=== PATIENT | male | born 1950 | race Caucasian/White ===

== ENCOUNTER 2017-11-16 23:08 | Emergency (ER) | payer MEDICARE ==
[~2017-11-16] VITALS: Ht 182.9 cm; Wt 92.2 kg
[2017-11-16 23:13] VITALS: BP 143/91; PULSE 106; TEMP 99.1; O2SAT 97
[2017-11-16 23:45] VITALS: O2SAT 98
[2017-11-17] MEDS ORDERED: RANI1TAB5 PO (00:34)
[2017-11-17] MEDS ORDERED: ATOR80TA45 PO (00:34)
[2017-11-17] MEDS ORDERED: EZET1TAB8 PO (00:34)
[2017-11-17] MEDS ORDERED: METO1TAB42 PO (00:34)
[2017-11-17] MEDS ORDERED: LISI2.5T3 PO (00:34)
[2017-11-17] MEDS ORDERED: CLOP75TA PO (00:34)
[2017-11-17] MEDS ORDERED: ASPI-147 PO (00:34)
[2017-11-17 01:00] VITALS: BP 159/93; PULSE 78; RESP 16; O2SAT 99
--- NOTE | 2017-11-17 01:25 | PD ---
HPI Chief Complaint: GI Complaint Time Seen by Provider: 01:22 Travel History International Travel<30 days: No Contact w/Intl Traveler<30days: No Traveled to known affect area: No History of Present Illness HPI The patient is a 67-year-old male that complains of diffuse abdominal pain now mostly in the midline epigastrium for 3 days. He denies any nausea or vomiting. He states he has been passing increased gas. He denies any fever. The patient has had no abdominal surgeries and still has his gallbladder and appendix. There is been no diarrhea. There is no fever. The pain is described as a 7/10 and is dull and continuous and radiates to the bilateral back. The patient has a history of GERD. He takes Zantac for this. PFSH Past Medical History Cardiac Catheterization: Yes High Cholesterol: Yes Myocardial Infarction: Yes (2012) ?: Not Past Surgical History Coronary Stent: Yes (2012) Social History Alcohol Use: No Tobacco Use: No Substance Use: No Allergies-Medications (Allergen,Severity, Reaction): Coded Allergies: oxycodone (Verified Allergy, Intermediate, 11/17/17) Reported Meds & Prescriptions Reported Meds & Active Scripts Active Zofran Odt (Ondansetron Odt) 4 Mg Tab 4 Mg SL Q6HR PRN Tramadol (Tramadol HCl) 50 Mg Tab 50 Mg PO Q4H PRN Omeprazole 40 Mg Cap 40 Mg PO DAILY Reported Ecotrin Low Strength (Aspirin) 81 Mg Tabdr 81 Mg PO DAILY Lisinopril 2.5 Mg Tab 2.5 Mg PO DAILY Atorvastatin (Atorvastatin Calcium) 80 Mg Tab 80 Mg PO HS Clopidogrel (Clopidogrel Bisulfate) 75 Mg Tab 75 Mg PO DAILY Metoprolol Succinate ER 24 HR (Metoprolol Succinate) 25 Mg Tab 25 Mg PO DAILY Ranitidine 75 (Ranitidine HCl) 75 Mg Tab 75 Mg PO DAILY Take 30 to 60 minutes before eating food or drinking beverages that cause heartburn. Ezetimibe 10 Mg Tab 10 Mg PO DAILY Review of Systems Except as stated in HPI: all other systems reviewed are Neg Physical Exam Narrative GENERAL: The patient is alert, oriented 3 in slight apparent distress with his abdominal discomfort. His vital signs show pulse rate of 106 with blood pressure 143/91 but are otherwise normal. SKIN: Focused skin assessment warm/dry. HEAD: Atraumatic. Normocephalic. EYES: Pupils equal and round. No scleral icterus. No injection or drainage. ENT: No nasal bleeding or discharge. Mucous membranes pink and moist. NECK: Trachea midline. No JVD. CARDIOVASCULAR: Regular rate and rhythm. No murmur appreciated. RESPIRATORY: No accessory muscle use. Clear to auscultation. Breath sounds equal bilaterally. GASTROINTESTINAL: Abdomen soft, with minimal tenderness of the midline epigastrium to direct palpation, nondistended. Hepatic and splenic margins not palpable. No guarding or rebound is present. MUSCULOSKELETAL: No obvious deformities. No clubbing. No cyanosis. No edema. NEUROLOGICAL: Awake and alert. No obvious cranial nerve deficits. Motor grossly within normal limits. Normal speech. PSYCHIATRIC: Appropriate mood and affect; insight and judgment normal. Data Data Last Documented VS Vital Signs Date Time Temp Pulse Resp B/P (MAP) Pulse Ox O2 Delivery O2 Flow Rate FiO2 11/17/17 02:05 78 16 171/91 (117) 99 11/17/17 01:00 Room Air 11/16/17 23:13 99.1 Orders Orders Complete Blood Count With Diff (11/17/17 00:45) Comprehensive Metabolic Panel (11/17/17 00:45) Urinalysis - C+S If Indicated (11/17/17 00:45) Iv Access Insert/Monitor (11/17/17 00:45) Lipase (11/17/17 00:45) Ct Abd/Pel W Iv Contrast(Rout) (11/17/17 01:26) Ecg Monitoring (11/17/17 01:26) Oximetry (11/17/17 01:26) Pantoprazole Inj (Protonix Inj) (11/17/17 01:30) Sodium Chlor 0.9% 1000 Ml Inj (Ns 1000 M (11/17/17 01:26) Sodium Chloride 0.9% Flush (Ns Flush) (11/17/17 01:30) Famotidine Inj (Pepcid Inj) (11/17/17 01:30) Iohexol 350 Inj (Omnipaque 350 Inj) (11/17/17 02:53) Morphine Inj (Morphine Inj) (11/17/17 04:15) Ondansetron Inj (Zofran Inj) (11/17/17 04:15) Ed Discharge Order (11/17/17 04:17) Labs Laboratory Tests Test 11/17/17 00:50 11/17/17 01:10 11/17/17 01:50 Urine Collection Type CLEAN CATCH Urine Color YELLOW Urine Turbidity CLEAR Urine pH 5.5 Urine Specific [place] 1.025 Urine Protein TRACE mg/dL Urine Glucose (UA) NEG mg/dL Urine Ketones NEG mg/dL Urine Occult Blood TRACE Urine Nitrite NEG Urine Bilirubin NEG Urine Urobilinogen 0.2 MG/DL Urine Leukocyte Esterase NEG Urine RBC 0-3 /hpf Urine Squamous Epithelial Cells 0-5 /hpf Urine Mucus OCC /lpf Microscopic Urinalysis Comment CULT NOT INDICATED White Blood Count 9.2 TH/MM3 Red Blood Count 5.25 MIL/MM3 Hemoglobin 15.8 GM/DL Hematocrit 45.7 % Mean Corpuscular Volume 86.9 FL Mean Corpuscular Hemoglobin 30.0 PG Mean Corpuscular Hemoglobin Concent 34.5 % Red Cell Distribution Width 13.3 % Platelet Count 199 TH/MM3 Mean Platelet Volume 7.3 FL Neutrophils (%) (Auto) 72.2 % Lymphocytes (%) (Auto) 15.4 % Monocytes (%) (Auto) 9.8 % Eosinophils (%) (Auto) 2.1 % Basophils (%) (Auto) 0.5 % Neutrophils # (Auto) 6.7 TH/MM3 Lymphocytes # (Auto) 1.4 TH/MM3 Monocytes # (Auto) 0.9 TH/MM3 Eosinophils # (Auto) 0.2 TH/MM3 Basophils # (Auto) 0.0 TH/MM3 CBC Comment DIFF FINAL Differential Comment Blood Urea Nitrogen 9 MG/DL Creatinine 1.10 MG/DL Random Glucose 142 MG/DL Total Protein 7.4 GM/DL Albumin 3.0 GM/DL Calcium Level 8.6 MG/DL Alkaline Phosphatase 101 U/L Aspartate Amino Transf (AST/SGOT) 18 U/L Alanine Aminotransferase (ALT/SGPT) 25 U/L Total Bilirubin 1.4 MG/DL Sodium Level 138 MEQ/L Potassium Level 3.9 MEQ/L Chloride Level 105 MEQ/L Carbon Dioxide Level 28.2 MEQ/L Anion Gap 5 MEQ/L Estimat Glomerular Filtration Rate 67 ML/MIN Lipase 89 U/L [facility] Medical Decision Making Medical Screen Exam Complete: Yes Emergency Medical Condition: Yes Medical Record Reviewed: Yes Interpretation(s) Except for cholelithiasis the CT abdomen/pelvis is unremarkable as is his blood work, including lipase and complete metabolic profile. The sugar is in the 140 range. Differential Diagnosis Electrolyte disorder, GERD, colitis, ulcer pain, pancreatitis Narrative Course The patient may have GERD. He is given omeprazole to add to his Zantac. He needs to follow-up with a proof passer. Diagnosis Primary Impression: GERD (gastroesophageal reflux disease) Additional Instructions: As we discussed, it is necessary to follow-up with a proof passer for upper endoscopy. This is to rule out ulcers and other causes of this type of pain. Med/Other Pt SpecificInfo: Prescription(s) given Scripts Ondansetron Odt (Zofran Odt) 4 Mg Tab 4 MG SL Q6HR Y for Nausea/Vomiting, #30 TAB 0 Refills Prov: Tomás Tiwari MD 11/17/17 Tramadol (Tramadol) 50 Mg Tab 50 MG PO Q4H Y for PAIN, #20 TAB 0 Refills Prov: Tomás Tiwari MD 11/17/17 Omeprazole (Omeprazole) 40 Mg Cap 40 MG PO DAILY, #30 CAP 0 Refills Prov: Tomás Tiwari MD 11/17/17 Disposition: 01 DISCHARGE HOME Condition: Stable Tomás Tiwari MD Nov 17, 2017 01:25
[2017-11-17] MEDS ORDERED: SODIUM CHLOR 0.9% 1000 ML INJ 1,000 ML IV SCH (01:26)
[2017-11-17] MEDS ORDERED: SODIUM CHLORIDE 0.9% FLUSH 10 ML FLUSH IV FLUSH PRN (01:30)
[2017-11-17] MEDS ORDERED: FAMOTIDINE 20 MG/2 ML VIAL IV PUSH ONE (01:30)
[2017-11-17] MEDS ORDERED: PANTOPRAZOLE SODIUM 40 MG VIAL IVP ONE (01:30)
[2017-11-17 01:34] LABS: BILIRUBIN, URINE NEG (NEG); BLOOD, URINE TRACE (NEG); GLUCOSE,URINE NEG (NEG); KETONE, URINE NEG (NEG); NITRITE,URINE NEG (NEG); PH, URINE 5.5 (5.0-8.5); URINE COLOR YELLOW (YELLW/STRAW); URINE LEUKOCYTE ESTERASE NEG (NEG)
[2017-11-17 01:40] LABS: MUCUS URINE OCC /lpf (OCC); RBC, URINE 0-3 /hpf (0-3); SQUAMOUS EPITHELIAL CELL URINE 0-5 /hpf (0-5)
[2017-11-17 02:00] LABS: AUTOMATED NEUTROPHIL # 6.7 TH/MM3 (1.8-7.7); BASOPHIL % 0.5 % (0.0-2.0); EOSINOPHIL # 0.2 TH/MM3 (0-0.4); EOSINOPHIL % 2.1 % (0.0-4.0); HEMATOCRIT 45.7 % (39.0-51.0); HEMOGLOBIN 15.8 GM/DL (13.0-17.0); LYMPH % 15.4 % (9.0-44.0); LYMPHOCYTE # 1.4 TH/MM3 (1.0-4.8); MEAN CELL VOLUME 86.9 FL (80.0-100.0); MEAN CORPUSCULAR HGB CONC 34.5 % (32.0-36.0); MEAN PLATELET VOLUME 7.3 FL (7.0-11.0); MONO % 9.8 % (0.0-8.0); MONOCYTE # 0.9 TH/MM3 (0-0.9); NEUT % 72.2 % (16.0-70.0); PLATELET COUNT 199 TH/MM3 (150-450); RED BLOOD COUNT 5.25 MIL/MM3 (4.50-5.90); RED CELL DISTRIBUTION WIDTH 13.3 % (11.6-17.2); WHITE BLOOD COUNT 9.2 TH/MM3 (4.0-11.0)
[2017-11-17 02:05] VITALS: BP 171/91; PULSE 78; RESP 16; O2SAT 99
[2017-11-17 02:17] LABS: CHLORIDE 105 MEQ/L (98-107); SODIUM (NA) 138 MEQ/L (136-145)
[2017-11-17 02:20] LABS: CALCIUM 8.6 MG/DL (8.5-10.1)
[2017-11-17 02:21] LABS: BICARBONATE 28.2 MEQ/L (21.0-32.0); BLOOD UREA NITROGEN 9 MG/DL (7-18); GLUCOSE,RANDOM 142 MG/DL (74-106)
[2017-11-17 02:24] LABS: ALT (GPT) 25 U/L (12-78); AST (GOT) 18 U/L (15-37); GLOMERULAR FILTRATION RATE 67 ML/MIN (>89)
[2017-11-17 02:25] LABS: TOTAL BILIRUBIN ADULT 1.4 MG/DL (0.2-1.0)
[2017-11-17 02:26] LABS: TOTAL PROTEIN 7.4 GM/DL (6.4-8.2)
[2017-11-17 02:27] LABS: ALKALINE PHOSPHATASE 101 U/L (45-117)
[2017-11-17] MEDS ORDERED: IOHEXOL 350 MG/ML 10 ML VIAL (for RAD DIAG) IVCONTRAST ONE (02:53)
--- NOTE | 2017-11-17 03:34 | RADRPT ---
EXAM DATE/TIME: 11/17/2017 02:41 [place] COMPARISON: No previous studies available for comparison. INDICATIONS : Lower abdominal pain. IV CONTRAST: 100 cc Omnipaque 350 (iohexol) IV ORAL CONTRAST: No oral contrast ingested. RADIATION DOSE: 18.48 CTDIvol (mGy) MEDICAL HISTORY : Cardiovascular disease. SURGICAL HISTORY : Coronary artery stent. ENCOUNTER: Initial ACUITY: 1 day PAIN SCALE: 6/10 LOCATION: Bilateral lower quadrant TECHNIQUE: Volumetric scanning of the abdomen and pelvis was performed. Using automated exposure control and ad justment of the mA and/or kV according to patient size, radiation dose was kept as low as reasonably achievable to obtain optimal diagnostic quality images. DICOM format image data is available electro nically for review and comparison. FINDINGS: LOWER LUNGS: The visualized lower lungs are clear. LIVER: Homogeneous density without lesion. There is no dilation of the biliary tree. There are calcified ga llstones. SPLEEN: Normal size without lesion. PANCREAS: Within normal limits. KIDNEYS: Normal in size and shape. There is no mass, stone or hydronephrosis. Bilateral renal low densities. ADRENAL GLANDS: Within normal limits. VASCULAR: There is no aortic aneurysm. BOWEL/MESENTERY: The stomach, small bowel, and colon demonstrate no acute abnormality. Anastomotic sutures in the rect um. There is no free intraperitoneal air or fluid. ABDOMINAL WALL: Within normal limits. RETROPERITONEUM: There is no lymphadenopathy. BLADDER: No wall thickening or mass. REPRODUCTIVE: Within normal limits. INGUINAL: There is no lymphadenopathy or hernia. MUSCULOSKELETAL: Right hip prosthesis. Multiple screws traversing left hip. CONCLUSION: 1. Cholelithiasis. 2. Bilateral renal cysts. 3. Previous colon surgery. 4. No acute inflammatory process. Eric Saldivar MD on November 17, 2017 at 3:30 Board Certified Radiologist. This report was verified electronically.
[2017-11-17] MEDS ORDERED: OMEP40CA2 PO (04:15)
[2017-11-17] MEDS ORDERED: ONDANSETRON HCL 4 MG/2 ML VIAL IVP ONE (04:15)
[2017-11-17] MEDS ORDERED: TRAM50TA PO (04:15)
[2017-11-17] MEDS ORDERED: MORPHINE SULFATE 4 MG/ML INJ IV PUSH ONE ×2 (04:15→04:45)
[2017-11-17] MEDS ORDERED: ZOFR4TAB3 SL (04:16)
[2017-11-17 04:26] VITALS: BP 170/93; PULSE 77; RESP 16; O2SAT 95
[2017-11-17 04:59] VITALS: RESP 16
[2017-11-17 05:22] VITALS: BP 156/88
== END 2017-11-17 05:40 | disposition home or self-care (01) ==
LOC: PHED 23:08
DX: K21.9 Gastro-esophageal reflux disease without esophagitis (principal); E78.00 Pure hypercholesterolemia, unspecified; I25.2 Old myocardial infarction; Z95.5 Presence of coronary angioplasty implant and graft; Z88.5 Allergy status to narcotic agent
CPT/HCPCS: 74177; 80053; 81001; 83690; 85025; 96361; 96374; 96375; 96376; 99284; C9113; J2270; J2405; J7030; Q9967